=== PATIENT | male | born 1990 | race Caucasian/White ===

== ENCOUNTER 2025-04-06 14:56 | Emergency (ER) | payer OTHER, SELFPAY ==
[2025-04-06 14:58] VITALS: BP 160/89
--- NOTE | 2025-04-06 16:16 | ED.SKININJ ---
HPI-Injury
<Ruth Kim MD, Resident - Last Filed: 04/06/25 18:14>
General
Chief Complaint: Bite
Source: patient
Exam Limitations: none
Time Seen by Provider: 04/06/25 16:13
Nursing documentation reviewed up to this point in time: agreed with
History of Present Illness-Injury
Is this injury a work related problem?: No
Initial Injury comments:
34 year old male with no significant past medical history comes to the ED due to recent dog bite in his face. He and his girl friend were seeing a dog to foster who ended up biting his face. The dog's immunizations are unknown. The bite was mainly
to his left upper lip and underside of his left sided nose. This happened an hour before his ER visit. Patient says that he is up to date with his tetanus shot.
Past History
<Ruth Kim MD, Resident - Last Filed: 04/06/25 18:14>
Past History
ED Past Medical History: None
ED Past Surgical History: None
Social History
Tobacco: Smoker
Alcohol: Daily
Drug: None
Personal: Single
Living: with family
Review of Systems
<Ruth Kim MD, Resident - Last Filed: 04/06/25 18:14>
Review of Systems
All Other Systems: ROS reviewed and negative except as documented in HPI and ROS
Constitutional: Reports no symptoms
EENT: Reports other (Lip swelling/pain)
Respiratory: Reports no symptoms
Cardiac: Reports no symptoms
ABD/GI: Reports no symptoms
: Reports no symptoms
Musculoskeletal: Reports no symptoms
Skin: Reports no symptoms
Neurological: Reports no symptoms
Endocrine: Reports no symptoms
Hematologic/Lymphatic: Reports no symptoms
Psychiatric: Reports no symptoms
Skin Exam
<Ruth Kim MD, Resident - Last Filed: 04/06/25 18:14>
Laceration
Left Upper Lip:
Length in cm: 3
Orientation: C shaped
Type of Laceration: simple
Any active bleeding?: no active bleeding
Distal skin color and temperature: normal-warm & good color
Normal distal neurovascular exam: Yes
Range of motion: limited
Left Lower Nose:
Length in cm: 3
Orientation: diagonal
Type of Laceration: layered
Any active bleeding?: no active bleeding
Distal skin color and temperature: normal-warm & good color
Normal distal neurovascular exam: Yes
Phy Exam
<Ruth Kim MD, Resident - Last Filed: 04/06/25 18:14>
General Physical Exam
General Presentation: well appearing and mild distress
General Skin: warm and dry
General Habitus: normal
General Mental: alert
General Hydration: appears well hydrated
ENT Exam
ENT Exam: other (Swelling/Erythema around area of laceration)
Course
<Ruth Kim MD, Resident - Last Filed: 04/06/25 18:14>
Orders/Labs/Results
Orders:
Orders
04/06/25 18:04
Amoxicillin 875 mg/Clav 125 mg [Augmentin 875 mg/125 mg] 1 tablet PO NOW STA
04/06/25 22:00
Bacitracin Zinc [Bacitracin Ointment] See Dose Instructions TOPICAL TID
Vital Signs
Initial and Last Documented VS:
Initial Vital Signs
Temp Pulse Resp BP Pulse Ox
98 F 102 16 160/89 97
04/06/25 14:58 04/06/25 14:58 04/06/25 14:58 04/06/25 14:58 04/06/25 14:58
Last Documented Vital Signs
Temp Pulse Resp BP Pulse Ox
98 F 102 16 160/89 97
04/06/25 14:58 04/06/25 14:58 04/06/25 14:58 04/06/25 14:58 04/06/25 16:55
<Giacomo Earl, DO - Last Filed: 04/06/25 23:27>
Orders/Labs/Results
Orders:
Orders
04/06/25 18:04
Amoxicillin 875 mg/Clav 125 mg [Augmentin 875 mg/125 mg] 1 tablet PO NOW STA
04/06/25 22:00
Bacitracin Zinc [Bacitracin Ointment] See Dose Instructions TOPICAL TID
Vital Signs
Initial and Last Documented VS:
Initial Vital Signs
Temp Pulse Resp BP Pulse Ox
98 F 102 16 160/89 97
04/06/25 14:58 04/06/25 14:58 04/06/25 14:58 04/06/25 14:58 04/06/25 14:58
Last Documented Vital Signs
Temp Pulse Resp BP Pulse Ox
98 F 102 16 160/89 97
04/06/25 14:58 04/06/25 14:58 04/06/25 14:58 04/06/25 14:58 04/06/25 16:55
Procedures
<Giacomo Earl, DO - Last Filed: 04/06/25 23:27>
Laceration Closure
Nose:
Status of Wound: clean
Size of Wound in cm: 2
Description of Wound Edges: ragged and flap-well vascularized
Preparation: cleaned with saline
Anesthesia: 1% Lidocaine
Revision/Debridement: routine- no revision
Wound exploration: explored to base- no FB
Type of Closure: single layer closure and interrupted sutures
Skin Closure Material: 5-0 nylon
Number of sutures: 4
Left Lower Lip:
Status of Wound: clean
Size of Wound in cm: 2
Description of Wound Edges: sharp and flap-well vascularized
Preparation: cleaned with saline
Anesthesia: 1% Lidocaine with epi
Revision/Debridement: routine- no revision
Wound exploration: explored to base- no FB
Type of Closure: single layer closure and interrupted sutures
Skin Closure Material: 5-0 nylon
Number of sutures: 5
<Ruth Kim MD, Resident - Last Filed: 04/06/25 18:14>
MDM/Problems Addressed
Differential Diagnosis Includes:
Lacerations on left upper lip and lower nose
MDM/Problems Addressed:
34 year old male comes to the ED due to recent laceration from a dog bite.
Wound closed using 5-0 stitches, will have to follow up with PCP to have stitches removed in 4-5 days
Will give pain relief with Motrin to take as needed, Augmentin for 10 days
<Ruth Kim MD, Resident - Last Filed: 04/06/25 18:14>
*Pulse Oximetry
SaO2: 97
Oxygen Mode of Delivery: Room air
Patient hypoxic: no
*Critical Care Note
Total Time (30-74mins, 75-104mins- exclusive of procedures): Not Applicable
ED Attending Note
<Ruth Kim MD, Resident - Last Filed: 04/06/25 18:14>
-
Portions of this chart may have been created with voice recognition software.� Occasional wrong word or��sound alike� substitutions may have occurred due to the inherent limitations of voice recognition software.
<Giacomo Earl, DO - Last Filed: 04/06/25 23:27>
ED Attending Note
Patient seen and examined by attending physician: Yes
I performed a history and physical exam of patient and discussed management with resident, I reviewed resident's note and agree with documented findings and plan of care.: Yes
ED Attending Note:
I have reviewed and agree with history and treatment plan by Ruth Kim MD. My exam revealed 34-year-old male with dog bite to nose and lip. Patient treated with Augmentin, tetanus is up-to-date extensive repair with good cosmetic result.
Patient will follow-up with his primary care.
Discharge Plan
Departure
Patient Disposition: Home (Routine Discharge)
Date of Disposition: 04/06/25
Time of Disposition: 18:11
Patient with high blood pressure during this ER visit?: Yes
Condition: Good
Discharge Problem:
Laceration of vermilion border of upper lip
Instructions: Animal Bites (DC), BLOOD PRESSURE
Prescriptions:
New
amoxicillin-pot clavulanate 875-125 mg tablet
1 tab PO BID 10 Days Qty: 19 0RF
Referrals:
UNKNOWN - PT DOES,NOT KNOW [Unknown Provider]
Activity Restrictions/Additional Instructions:
As discussed, take Augmentin 2 times a day for 10 days (you have received today's dose of medication)
You should follow up with your PCP for suture removal in 4-5 days
As discussed you said you are up to date with your Tetanus shot.
Keep the wounds dry and keep wearing sun protection when outside while wound heals
Take over the counter Motrin for pain as needed
Interventions
Interventions:
*Risk Screen - Suicide Last Done: 04/06/25 15:00
*General Assessment Last Done: 04/06/25 16:07
*Neglect/Abuse Screening Last Done: 04/06/25 15:00
*ED- Fall Risk Assessment Last Done: 04/06/25 16:07
*ED COVID-19 Vaccine History Last Done: 04/06/25 16:07
*Nursing Disposition Last Done: 04/06/25 18:21
ED-Skin Assessment Last Done: 04/06/25 16:07
Discharge Date and Time
Discharge Date/Time: 04/06/25 18:22
Print Language: CONGOLESE
[2025-04-06] MEDS: AUGMENTIN 875 MG/125 MG 1 TABLET PO (18:12)
== END 2025-04-06 18:22 | disposition home or self-care (01) ==
LOC: EMR 14:56
PROVIDERS: EMERGENCY PHYSICIAN Emergency Medicine; FAMILY PHYSICIAN Nurse Practitioner Family
DX: S01.511A Laceration without foreign body of lip, initial encounter (principal); S01.21XA Laceration without foreign body of nose, initial encounter; F17.200 Nicotine dependence, unspecified, uncomplicated; W54.0XXA Bitten by dog, initial encounter
CPT/HCPCS: 99283; 12013